=== PATIENT | female | born 1970 | race Two or more races ===

== ENCOUNTER 2021-01-17 12:07 | Emergency (ER) | payer OTHER ==
[~2021-01-17] VITALS: Ht 160 cm; Wt 86.2 kg
[2021-01-17 13:12] VITALS: BP 116/66
[2021-01-17] MEDS ORDERED: ACETAMINOPHEN 500 MG TAB PO ONE (14:00)
== END 2021-01-17 14:32 | disposition home or self-care (01) ==
LOC: ER 12:07
DX: S30.1XXA Contusion of abdominal wall, initial encounter (principal); D25.9 Leiomyoma of uterus, unspecified; W22.8XXA Striking against or struck by other objects, initial encounter; Y93.89 Activity, other specified; Y92.89 Other specified places as the place of occurrence of the external cause; Y99.8 Other external cause status
CPT/HCPCS: 74176